=== PATIENT | male | born 1995 | race Caucasian/White ===

== ENCOUNTER 2019-10-03 20:13 | Emergency (ER) | payer BC ==
[~2019-10-03] VITALS: Ht 188 cm; Wt 156.5 kg
[2019-10-03 20:18] VITALS: BP_SYST 144
--- NOTE | 2019-10-03 23:23 | NUR ---
Patient to ER chair to gown for evaluation. Side rails up.
--- NOTE | 2019-10-03 23:25 | NUR ---
ER at bedside examining patient.
--- NOTE | 2019-10-03 23:28 | NUR ---
Dr daniels removed cotton tip to left ear.Pt tolerated well.
[2019-10-03 23:29] VITALS: BP_SYST 135
--- NOTE | 2019-10-03 23:29 | NUR ---
Patient given written and verbal discharge instructions and verbalizes understanding. ER MD discussed with patient the results and treatment provided. Patient in stable condition. ID arm band removed. no Rx of given. Patient educated on pain management and to follow up with PMD. Pain Scale 0/10. Opportunity for questions provided and answered. Medication side effect fact sheet provided.
== END 2019-10-03 23:29 | disposition home or self-care (01) ==
LOC: SED 20:13 → MERGE 20:13 → SED 23:29
DX: T16.2XXA Foreign body in left ear, initial encounter (principal); X58.XXXA Exposure to other specified factors, initial encounter; Y93.E8 Activity, other personal hygiene; Y92.89 Other specified places as the place of occurrence of the external cause; Y99.8 Other external cause status
CPT/HCPCS: 99284

== ENCOUNTER 2020-01-17 15:22 | Emergency (ER) | payer BC ==
[~2020-01-17] VITALS: Ht 188 cm; Wt 156.5 kg
--- NOTE | 2020-01-17 15:28 | NUR ---
Patient to ER bed 06 to gown for evaluation. Side rails up.
--- NOTE | 2020-01-17 15:30 | NUR ---
Report given by ADARSH Jimenez for continuation of care.
[2020-01-17 15:34] VITALS: BP_SYST 193
--- NOTE | 2020-01-17 15:35 | NUR ---
Pt. presents to the ED A&OX4 and ambulatory with c/o of sore throat dry cough, low grade fever, chest pain, nasuea, and SOB for the past day. Pt. states that he vomited x1 yesterday. Cap refill <3 seconds. 96 02 sat on RA. Will continue to monitor pt.
--- NOTE | 2020-01-17 15:38 | NUR ---
Dr. Velásquez at bedside examining pt.
--- NOTE | 2020-01-17 15:40 | NUR ---
Radiology at bedside with pt.
[2020-01-17] MEDS ORDERED: ONDANSETRON 4 MG ODT TAB PO ONE (16:00)
[2020-01-17] MEDS ORDERED: ACETAMINOPHEN 500 MG TABLET PO ONE (16:00)
[2020-01-17] MEDS ORDERED: ACETAMINOPHEN 500 MG TABLET ONE (16:23)
--- NOTE | 2020-01-17 16:35 | NUR ---
VSS. Pt. does not appear to be in distress or pain and is resting at this time.
--- NOTE | 2020-01-17 17:30 | NUR ---
Pt. denies pain and does not appear to be in distress at this time. Pt. states that he feels better than when he first came in and it feels like his throat pain has subsided. Awaiting strep results and DC orders from
--- NOTE | 2020-01-17 17:32 | NUR ---
Patient walked by KELBY Mann and O2 SAT upon rising and walking around was 96%. Patient tolerated intervention well and was not in any distress.
[2020-01-17 18:25] VITALS: BP_SYST 121
--- NOTE | 2020-01-17 18:25 | NUR ---
Patient given written and verbal discharge instructions and verbalizes understanding. ER MD discussed with patient the results and treatment provided. Patient in stable condition. ID arm band removed. Rx of Zofran and Tylenol given. Patient educated on pain management and to follow up with PMD. Pain Scale 0/10. Opportunity for questions provided and answered. Medication side effect fact sheet provided.
== END 2020-01-17 18:25 | disposition home or self-care (01) ==
LOC: SED 15:22
DX: B34.9 Viral infection, unspecified (principal); J02.9 Acute pharyngitis, unspecified; Z20.828 Contact with and (suspected) exposure to other viral communicable diseases
CPT/HCPCS: 71045; 86403; 86710; 87081; 93005; 99285; Q0162; U0003; 36415